=== PATIENT | female | born 1950 | race Caucasian/White ===

== ENCOUNTER → 2019-04-18 13:12 | Outpatient (CLI) | payer MEDICARE | END | disposition home or self-care (01) | LOC: D.HCCARDIO 13:12 | PROVIDERS: ATTEND Internal Medicine Cardiovascular Disease | DX: R00.0 Tachycardia, unspecified (principal); I10 Essential (primary) hypertension ==

== ENCOUNTER → 2021-02-11 11:21 | Outpatient (CLI) | payer MEDICARE | END | disposition home or self-care (01) | LOC: D.ECHO 10:35 | PROVIDERS: ATTEND Family Medicine | DX: I63.9 Cerebral infarction, unspecified (principal) ==